=== PATIENT | male | born 2000 | race Caucasian/White ===

== ENCOUNTER 2024-01-27 11:45 | Emergency (ER) | payer OTHER ==
[~2024-01-27] VITALS: Ht 185.4 cm; Wt 79.4 kg
[2024-01-27 11:52] VITALS: BP 142/66; PULSE 91; RESP 18; TEMP 97.8; O2SAT 100
[2024-01-27] MEDS: ACETAMINOPHEN EXTRA STRENGTH 500 MG TAB PO ONE (12:29)
[2024-01-27] MEDS: IBUPROFEN 600 MG TAB PO ONE (12:30)
[2024-01-27 12:58] VITALS: BP 145/66; PULSE 88; RESP 16; TEMP 98; O2SAT 100
== END 2024-01-27 12:02 | disposition home or self-care (01) ==
LOC: MED 11:45
DX: S93.601A Unspecified sprain of right foot, initial encounter (principal); X50.1XXA Overexertion from prolonged static or awkward postures, initial encounter; Y93.72 Activity, wrestling; Y92.89 Other specified places as the place of occurrence of the external cause; Y99.8 Other external cause status
CPT/HCPCS: 73630; 99283